=== PATIENT | female | born 1990 | race African-American/Black ===

== ENCOUNTER 2016-08-03 04:06 | Emergency (ER) | payer MEDICAID ==
[~2016-08-03] VITALS: Ht 165.1 cm; Wt 114.0 kg
[~2016-08-03 04:06] MED LIST: CLIN1CAP5 PO; DICL75 PO
[2016-08-03 04:07] VITALS: BP 137/67; PULSE 85; RESP 16; TEMP 98.1; O2SAT 98
[2016-08-03] MEDS ORDERED: PRENTAB36 PO (04:53)
--- NOTE | 2016-08-03 04:53 | PD ---
HPI Chief Complaint: GI Complaint Time Seen by Provider: 04:39 Travel History International Travel<30 days: No Contact w/Intl Traveler<30days: No Traveled to known affect area: No History of Present Illness HPI 18 weeks arrives this is a 26-year-old female. She is 3 para 2 :15 weeks . For 2 days she has felt constipated. She has been straining a little bit however is worried about her . She has tried no dietary intervention. Generalized abdominal pain consistent with constipation is reported. She takes Zofran for occasional nausea and vomiting. She's had no vaginal bleeding. She is scheduled to follow with gynecology/ obstetrics next week at [facility]. [facility] Past Medical History Medical History: Denies Significant Hx ?: Past Surgical History Surgical History: No Previous Surgery Social History Alcohol Use: No Tobacco Use: No Substance Use: No Allergies-Medications (Allergen,Severity, Reaction): Coded Allergies: No Known Allergies (Verified , 08/03/16) Reported Meds & Prescriptions Reported Meds & Active Scripts Active Review of Systems Except as stated in HPI: all other systems reviewed are Neg Physical Exam Narrative GENERAL: 26 yo F, NAD, WNWD SKIN: Warm and dry. HEAD: Atraumatic. Normocephalic. CARDIOVASCULAR: Regular rate and rhythm. No murmur appreciated. RESPIRATORY: No accessory muscle use. Clear to auscultation. Breath sounds equal bilaterally. GASTROINTESTINAL: Soft. No focus of tenderness. Data Data Last Documented VS Vital Signs Date Time Temp Pulse Resp B/P Pulse Ox O2 Delivery O2 Flow Rate FiO2 08/03/16 04:07 98.1 85 16 137/67 98 Room Air [facility] Medical Decision Making Medical Screen Exam Complete: Yes Emergency Medical Condition: Yes Medical Record Reviewed: Yes Differential Diagnosis Constipation, , nausea vomiting Narrative Course Dietary changes recommended. The patient has follow-up next week with obstetrics in [facility]. Patient agreeable with plan. Will start vitamins. Diagnosis Primary Impression: Constipation Qualified Code: K59.00 - Constipation, unspecified constipation type Additional Impression: Qualified Code: Z3A.15 - 15 weeks gestation of Referrals: Help Desk Agent Additional Instructions: You have a choice when it comes to health care, and we are glad that you chose [facility]. Hopefully, we have met your expectations on today's visit. You are welcome to return to [facility] at any time, as we are committed to meeting the health care needs of our community. Med/Other Pt SpecificInfo: Prescription(s) given Scripts Multivit-Min W/Fe-FA ( Forte)1 Tab Tab1 Tab PO da 90 Days Ref 2 Prov:Otto Berman MD 08/03/16 Disposition: 01 DISCHARGE HOME Condition: Stable Otto Berman MD Aug 03, 2016 04:53
== END 2016-08-03 05:17 | disposition home or self-care (01) ==
LOC: NEPE 04:06
DX: O26.892 Other specified pregnancy related conditions, second trimester (principal); K59.00 Constipation, unspecified; Z3A.15 15 weeks gestation of pregnancy
CPT/HCPCS: 99283

== ENCOUNTER 2016-08-04 07:57 | Emergency (ER) | payer MEDICAID ==
[~2016-08-04] VITALS: Ht 165.1 cm; Wt 115.0 kg
[~2016-08-04 07:57] MED LIST changes: +PRENTAB36 PO
[2016-08-04 07:59] VITALS: BP 130/88; PULSE 88; RESP 16; TEMP 98.2; O2SAT 97
--- NOTE | 2016-08-04 08:39 | PD ---
HPI Chief Complaint: Related Problem Time Seen by Provider: 08:26 Travel History International Travel<30 days: No Contact w/Intl Traveler<30days: No Traveled to known affect area: No History of Present Illness HPI Patient is a 26-year-old female presents emergency department for complaints of vaginal bleeding. Patient states she is 15 weeks' diagnostic for the [facility]. Patient denies any abdominal pain. Patient states that she went to wipe herself this morning and noticed that there was some blood on tissue paper. Denies any hypovolemic symptoms, review of her records show that she is Rh+ patient. States he was just blood on the toilet paper she did not have any blood clot passage. PFSH Past Medical History ?: : 3 Para: 2 Miscarriage: 1 Social History Alcohol Use: No Tobacco Use: No Substance Use: No Allergies-Medications (Allergen,Severity, Reaction): Coded Allergies: No Known Allergies (Verified , 08/04/16) Reported Meds & Prescriptions Reported Meds & Active Scripts Active Forte ( Multivit-Min W/Fe-FA) 1 Tab Tab 1 Tab PO DA 90 Days Review of Systems Except as stated in HPI: all other systems reviewed are Neg Physical Exam Narrative GENERAL: Well-developed overweight no apparent distress. SKIN: Warm and dry. HEAD: Atraumatic. Normocephalic. EYES: Pupils equal and round. No scleral icterus. No injection or drainage. ENT: No nasal bleeding or discharge. Mucous membranes pink and moist. NECK: Trachea midline. No JVD. CARDIOVASCULAR: Regular rate and rhythm. No murmur appreciated. RESPIRATORY: No accessory muscle use. Clear to auscultation. Breath sounds equal bilaterally. GASTROINTESTINAL: Abdomen soft, non-tender, nondistended. Hepatic and splenic margins not palpable. GENITOURINARY: Exam performed with female nurse present in all times, no discharge and no bleeding from cervix at this time, no bimanual tenderness, no cervical motion tenderness, been taking swabs for GC and wet prep there is scant blood tinged fluid in the cervical area however no active bleeding was noted. Cervix is closed. MUSCULOSKELETAL: No obvious deformities. No clubbing. No cyanosis. No edema. NEUROLOGICAL: Awake and alert. No obvious cranial nerve deficits. Motor grossly within normal limits. Normal speech. PSYCHIATRIC: Appropriate mood and affect; insight and judgment normal. Data Data Last Documented VS Vital Signs Date Time Temp Pulse Resp B/P Pulse Ox O2 Delivery O2 Flow Rate FiO2 08/04/16 07:59 98.2 88 16 130/88 97 Room Air Orders Ed Poc Ultrasound (08/04/16 ) Wet Prep Profile (08/04/16 08:26) Gc And Chlamydia Pcr (08/04/16 08:26) Urinalysis - C+S If Indicated (08/04/16 08:26) Labs Laboratory Tests Test 08/04/16 08/04/16 09:00 09:05 Urine Color YELLOW Urine Turbidity HAZY Urine pH 6.0 Urine Specific [place] 1.023 Urine Protein TRACE mg/dL Urine Glucose (UA) NEG mg/dL Urine Ketones NEG mg/dL Urine Occult Blood MOD Urine Nitrite NEG Urine Bilirubin NEG Urine Urobilinogen LESS THAN 2.0 MG/DL Urine Leukocyte Esterase SMALL Urine RBC 2 /hpf Urine WBC 6 /hpf Urine Squamous Epithelial 4 /hpf Cells Urine Bacteria FEW /hpf Urine Mucus MOD /lpf Microscopic Urinalysis Comment CULT NOT INDICATED Clue Cells (Wet Prep) PRESENT Vaginal Trichomonas (Wet Prep) NONE SEEN Vaginal Yeast (Wet Prep) NONE SEEN Chlamydia trachomatis DNA NOT DETECTED (PCR) Neisseria gonorrhoeae DNA NOT DETECTED (PCR) MDM Medical Decision Making Medical Screen Exam Complete: Yes Emergency Medical Condition: Yes Differential Diagnosis Vaginal bleeding , BV, CVA, STD, intrauterine demise. Narrative Course Patient roomed emergency primary, no discharge seen, STD probe sent. Patient is Rh+ by previous labs here. Bedside ultrasound was reassuring. Discussed with the patient need for follow-up with her PROJECT HIRE and she has an appointment this coming Saturday. She feels reassured after seeing the ultrasound results and requests discharge. Procedures Procedure Narrative Bedside ultrasound: Transabdominal views were obtained of the low pelvis and shows a single intrauterine approximately 16 weeks gestational age by biparietal diameter. Active movement active heart tones. No gross abnormalities. heart tones to 138 by M-mode. Diagnosis Primary Impression: Vaginal bleeding in Qualified Code: O46.91 - Vaginal bleeding in , first trimester Additional Instructions: Follow-up with your PROJECT HIRE on Saturday as scheduled, take vitamins no smoking or drinking no fish. Increased bleeding or abdominal pains should prompt you to come back to the emergency department. Disposition: 01 DISCHARGE HOME Condition: Stable ContrerasRicardo J MD Aug 04, 2016 08:39
[2016-08-04 09:34] LABS: BACTERIA, URINE FEW /hpf; BLOOD, URINE MOD (NEG); COMMENT (UR) CULT NOT INDICATED; CULTURE IF INDICATED CULT NOT INDICATED; GLUCOSE,URINE NEG (NEG); KETONE, URINE NEG (NEG); MUCUS URINE MOD /lpf (OCC); NITRITE,URINE NEG (NEG); SQUAMOUS EPITHELIAL CELL URINE 4 /hpf (0-5); URINE COLOR YELLOW (YELLW/STRAW)
[2016-08-04 13:57] LABS: CHLAMYDIA PCR NOT DETECTED (NOT DETECT); NEISSERIA PCR NOT DETECTED (NOT DETECT)
== END 2016-08-04 09:44 | disposition home or self-care (01) ==
LOC: NEPE 07:57
DX: O46.92 Antepartum hemorrhage, unspecified, second trimester (principal)
CPT/HCPCS: 81001; 87210; 87491; 87591; 99284

== ENCOUNTER 2016-08-04 12:53 | Emergency (ER) | payer MEDICAID ==
--- NOTE | 2016-08-04 13:49 | PD ---
HPI Chief Complaint Spotting Date Seen: Aug 04, 2016 Time Seen: 13:40 Travel History International Travel<30 Days: No Contact w/Intl Traveler<30Days: No Known Affected Area: No History of Present Illness HPI 26-year-old 3 para 2 living 1 at 15-6/7 weeks' gestation with an EDC January 21 by LMP consistent with point of care ultrasound in the emergency room. She states that she noticed some blood on the tissue when she wiped herself. She denies any leakage of fluid, vaginal discharge or irritation. No abdominal trauma or cramping. She has had substantial constipation problems already in this . No dysuria or hematuria or frequency Para: 2 : 3 Miscarriage: 0 : 0 History Past Medical History Narrative Medical No chronic diseases Past Surgical History Surgical History: No Previous Surgery Family History Family History: Negative Social History Alcohol Use: No Tobacco Use: No Substance Abuse: No Allergies-Medications (Allergen,Severity, Reaction): Coded Allergies: No Known Allergies (Verified , 08/04/16) Home Meds Active Scripts Multivit-Min W/-FA ( Forte)1 Tab Tab1 Tab PO da 90 Days Ref 2 Prov:Otto Berman MD 08/03/16 Discontinued Scripts Diclofenac Sod (Diclofenac Sodium Dr)75 Mg Tab75 Mg PO Q12HR PRN (PAIN SCALE 1 TO 10) #20 TAB Prov:Aleksander Headley MD 12/19/15 Clindamycin Hcl 150 Mg [id number] Mg PO Q6H 10 Days Prov:Aleksander Headley MD 12/19/15 Review of Systems Except as stated in HPI: all other systems reviewed are Neg Physical Exam Narrative GENERAL: Well-nourished, well-developed patient. SKIN: Warm and dry. HEAD: Normocephalic and atraumatic. EYES: No scleral icterus. No injection or drainage. ENT: No nasal drainage noted. Mucous membranes pink. Airway patent. NECK: Supple, trachea midline. No JVD. ABDOMEN/GI: Abdomen soft, non-tender, bowel sounds present, no rebound, no guarding Gravid to [-] weeks size Fundal Height: [-] GENITOURINARY: External Genitalia: intact and normal in appearance BUS glands: [Negative-] Cervix: [-] Dilatation: [Closed-] Effacement: [-Long] Station: [-] Presentation: [-] Membranes: [intact or ruptured] Uterine Contractions: [-] FHT's: Category: [-] Baseline: [140-] Reactive: [-] Variability: [-] Decels: [-] EXTREMITIES: No cyanosis or edema. BACK: Nontender without obvious deformity. No CVA tenderness. NEUROLOGICAL: Awake and alert. Motor and sensory grossly within normal limits. Five out of 5 muscle strength in all muscle groups. Normal speech. Data Data Vital Signs Reviewed: Yes MDM Medical Record Reviewed: Yes Narrative Course / MDM Assessment: 15+ week intrauterine with spotting. Acute on top of chronic constipation Plan: The patient is Rh+. Urinalysis from the emergency room did not meet criteria for culture. GC and Chlamydia are pending. Precautions were reviewed with the patient regarding need for emergent follow- up. She has an appointment on Saturday for initiating her care and the importance of this was emphasized. Diagnosis Diagnosis: Primary Impression: Vaginal bleeding in Qualified Code: O46.92 - Vaginal bleeding in , second trimester Additional Impression: Constipation Disposition: 01 DISCHARGE HOME Avila Paz MD Aug 04, 2016 13:49
== END 2016-08-04 13:57 | disposition home or self-care (01) ==
LOC: HOBED 12:53
DX: O46.92 Antepartum hemorrhage, unspecified, second trimester (principal); K59.00 Constipation, unspecified
CPT/HCPCS: 99283

== ENCOUNTER 2017-02-28 15:28 | Emergency (ER) | payer MEDICAID ==
[~2017-02-28] VITALS: Ht 165.1 cm; Wt 112.0 kg
[~2017-02-28 15:28] MED LIST changes: -CLIN1CAP5 PO; -DICL75 PO
[2017-02-28 15:30] VITALS: BP 168/89; PULSE 116; RESP 16; TEMP 101.1; O2SAT 100
--- NOTE | 2017-02-28 15:53 | PD ---
Physical Exam Date Seen by Provider: Feb 28, 2017 Time Seen by Provider: 15:51 Narrative 26-year-old female who is 7 weeks presents the emergency department with urinary tract infection symptoms including hematuria, burning, and frequency. Patient has noted fever around 101.7. She is tachycardic. Patient states she is passing urine with blood in it. Patient has had low back pain since yesterday. Pain was 10 over 10. Protocols were ordered including blood cultures and lactic acid. Vital signs show fever and tachycardia. Patient is awaiting medical bed placement. Data Data Last Documented VS Vital Signs Date Time Temp Pulse Resp B/P (MAP) Pulse Ox O2 Delivery O2 Flow Rate FiO2 02/28/17 15:30 101.1 116 16 168/89 (115) 100 Room Air Orders Orders Urinalysis - C+S If Indicated (02/28/17 15:46) Beta Hcg (Quant/Titer) (02/28/17 15:49) Complete Blood Count With Diff (02/28/17 15:49) Comprehensive Metabolic Panel (02/28/17 15:49) Lactic Acid (02/28/17 15:49) Prothrombin Time / Inr (Pt) (02/28/17 15:49) Act Partial Throm Time (Ptt) (02/28/17 15:49) Blood Culture (02/28/17 15:49) MDM Medical Record Reviewed: Yes Supervised Visit with CRISTAL: Yes Condition: Stable Oleg Fontenot Feb 28, 2017 15:53
[2017-02-28 16:36] LABS: AUTOMATED NEUTROPHIL # 6.1 TH/MM3 (1.8-7.7); BASOPHIL % 0.3 % (0.0-2.0); EOSINOPHIL % 0.1 % (0.0-4.0); HEMATOCRIT 36.8 % (35.0-46.0); HEMO FLAGS DIFF FINAL; LYMPH % 7.5 % (9.0-44.0); LYMPHOCYTE # 0.5 TH/MM3 (1.0-4.8); MEAN CELL VOLUME 86.8 FL (80.0-100.0); MEAN CORPUSCULAR HGB CONC 32.2 % (32.0-36.0); MONO % 6.2 % (0.0-8.0); NEUT % 85.9 % (16.0-70.0); PLATELET COUNT 251 TH/MM3 (150-450); RED BLOOD COUNT 4.24 MIL/MM3 (4.00-5.30); RED CELL DISTRIBUTION WIDTH 15.7 % (11.6-17.2)
[2017-02-28 16:48] LABS: APTT (PATIENT) 31.7 SEC (24.3-30.1); PROTHROMBIN TIME - PATIENT 11.4 SEC (9.8-11.6)
[2017-02-28 16:57] LABS: ALT (GPT) 50 U/L (10-53); ANION GAP 8 MEQ/L (5-15); AST (GOT) 34 U/L (15-37); BICARBONATE 25.9 MEQ/L (21.0-32.0); BLOOD UREA NITROGEN 8 MG/DL (7-18); CHLORIDE 98 MEQ/L (98-107); GLOMERULAR FILTRATION RATE 71 ML/MIN (>89); POTASSIUM 3.4 MEQ/L (3.5-5.1); SODIUM (NA) 132 MEQ/L (136-145)
[2017-02-28] MEDS ORDERED: ACETAMINOPHEN 325 MG TAB PO ONE (17:00)
[2017-02-28 17:02] LABS: ALKALINE PHOSPHATASE 79 U/L (45-117); BETA HCG QUANT LESS THAN 1 MIU/ML (0-5); TOTAL BILIRUBIN ADULT 1.3 MG/DL (0.2-1.0)
[2017-02-28 17:09] LABS: BACTERIA, URINE MOD /hpf; BLOOD, URINE MOD (NEG); COMMENT (UR) CULTURE INDICATED; CULTURE IF INDICATED CULTURE INDICATED; GLUCOSE,URINE NEG (NEG); KETONE, URINE NEG (NEG); MUCUS URINE FEW /lpf (OCC); NITRITE,URINE NEG (NEG); PH, URINE 5.5 (5.0-8.5); SQUAMOUS EPITHELIAL CELL URINE 1 /hpf (0-5); URINE COLOR YELLOW (YELLW/STRAW)
[2017-02-28] MEDS ORDERED: MORPHINE SULFATE 4 MG/ML INJ IV PUSH ONE (17:15)
[2017-02-28] MEDS ORDERED: ONDANSETRON HCL 4 MG/2 ML VIAL IV PUSH ONE (17:15)
[2017-02-28] MEDS ORDERED: cefTRIAXone INJ 1,000 MG in SODIUM CHLORIDE 0.9% INJ 100 ML IV ONE (17:15)
--- NOTE | 2017-02-28 18:08 | PD ---
HPI Chief Complaint: Complaint Time Seen by Provider: 16:53 Travel History International Travel<30 days: No Contact w/Intl Traveler<30days: No Traveled to known affect area: No History of Present Illness HPI 26-year-old female that presents to the ED for evaluation of fever, urinary symptoms and hematuria. Per patient she's had this since yesterday. Only medical history is recent childbirth vaginal 7 weeks ago. Per patient she has had no issues. Per patient she initially thought she was having her menses but she noted that the urine was what was bleeding. She states that it hurts to urinate. She denies any vaginal discharge or bleeding. States that the pain is mainly on the pelvic area as well as in the right flank. No history of kidney stones. She states having had UTIs in the past and this feels similar the bleeding is new. She has no allergies to medication. No chest pain or shortness of breath. Per patient the pain is 8 out of 10. She thought that she had chills but she do not know she had a fever which was found out to be here. She denies any chest pain or shortness of breath. No nausea or vomiting. She does not breast-feed at this time. Takes no medications. PFSH Past Medical History ?: Not LMP: 02/08/2017 : 3 Para: 2 Miscarriage: 1 Social History Alcohol Use: No Tobacco Use: No Substance Use: No Allergies-Medications (Allergen,Severity, Reaction): Coded Allergies: No Known Allergies (Verified , 02/28/17) Reported Meds & Prescriptions Reported Meds & Active Scripts Active Zofran (Ondansetron HCl) 4 Mg Tab 4 Mg PO Q6HR PRN Macrobid (Nitrofurantoin Monohydrate Macrocrystals) 100 Mg Capsule 100 Mg PO BID 10 Days Review of Systems Except as stated in HPI: all other systems reviewed are Neg Physical Exam Narrative GENERAL: SKIN: Warm and dry. HEAD: Atraumatic. Normocephalic. EYES: Pupils equal and round. No scleral icterus. No injection or drainage. ENT: No nasal bleeding or discharge. Mucous membranes pink and moist. Tongue is midline. No uvula deviation. NECK: Trachea midline. No JVD. CARDIOVASCULAR: Regular rate and rhythm. No murmurs, S3, S4. RESPIRATORY: No accessory muscle use. Clear to auscultation. Breath sounds equal bilaterally. GASTROINTESTINAL: Abdomen soft, non-tender, nondistended. Hepatic and splenic margins not palpable. Patient has reproducible pain on the right flank. MUSCULOSKELETAL: Extremities without clubbing, cyanosis, or edema. No obvious deformities. Full range of motion of the upper and lower extremities bilaterally. 2+ pulses bilaterally. NEUROLOGICAL: Awake and alert. No obvious cranial nerve deficits. Motor grossly within normal limits. Five out of 5 muscle strength in the arms and legs. Normal speech. PSYCHIATRIC: Appropriate mood and affect; insight and judgment normal. Data Data Last Documented VS Vital Signs Date Time Temp Pulse Resp B/P (MAP) Pulse Ox O2 Delivery O2 Flow Rate FiO2 02/28/17 17:38 18 02/28/17 15:30 101.1 116 168/89 (115) 100 Room Air Orders Orders Urinalysis - C+S If Indicated (02/28/17 15:46) Beta Hcg (Quant/Titer) (02/28/17 15:49) Complete Blood Count With Diff (02/28/17 15:49) Comprehensive Metabolic Panel (02/28/17 15:49) Lactic Acid (02/28/17 15:49) Prothrombin Time / Inr (Pt) (02/28/17 15:49) Act Partial Throm Time (Ptt) (02/28/17 15:49) Blood Culture (02/28/17 16:05) Acetaminophen (Tylenol) (02/28/17 17:00) Ct Abd/Pel W/O Iv Contrast (02/28/17 17:08) Ceftriaxone Inj (Rocephin Inj) (02/28/17 17:15) Urine Culture (02/28/17 15:34) Morphine Inj (Morphine Inj) (02/28/17 17:15) Ondansetron Inj (Zofran Inj) (02/28/17 17:15) Sodium Chlor 0.9% 1000 Ml Inj (Ns 1000 M (02/28/17 18:28) Labs Laboratory Tests Test 02/28/17 15:34 02/28/17 16:02 Urine Color YELLOW Urine Turbidity HAZY Urine pH 5.5 Urine Specific [place] 1.020 Urine Protein 30 mg/dL Urine Glucose (UA) NEG mg/dL Urine Ketones NEG mg/dL Urine Occult Blood MOD Urine Nitrite NEG Urine Bilirubin NEG Urine Urobilinogen LESS THAN 2.0 MG/DL Urine Leukocyte Esterase LARGE Urine RBC 49 /hpf Urine WBC /hpf Urine WBC Clumps OCC Urine Squamous Epithelial Cells 1 /hpf Urine Bacteria MOD /hpf Urine Mucus FEW /lpf Microscopic Urinalysis Comment CULTURE INDICATED White Blood Count 7.0 TH/MM3 Red Blood Count 4.24 MIL/MM3 Hemoglobin 11.9 GM/DL Hematocrit 36.8 % Mean Corpuscular Volume 86.8 FL Mean Corpuscular Hemoglobin 28.0 PG Mean Corpuscular Hemoglobin Concent 32.2 % Red Cell Distribution Width 15.7 % Platelet Count 251 TH/MM3 Mean Platelet Volume 9.3 FL Neutrophils (%) (Auto) 85.9 % Lymphocytes (%) (Auto) 7.5 % Monocytes (%) (Auto) 6.2 % Eosinophils (%) (Auto) 0.1 % Basophils (%) (Auto) 0.3 % Neutrophils # (Auto) 6.1 TH/MM3 Lymphocytes # (Auto) 0.5 TH/MM3 Monocytes # (Auto) 0.4 TH/MM3 Eosinophils # (Auto) 0.0 TH/MM3 Basophils # (Auto) 0.0 TH/MM3 CBC Comment DIFF FINAL Differential Comment Prothrombin Time 11.4 SEC Prothromb Time International Ratio 1.0 RATIO Activated Partial Thromboplast Time 31.7 SEC Blood Urea Nitrogen 8 MG/DL Creatinine 1.12 MG/DL Random Glucose 125 MG/DL Total Protein 8.4 GM/DL Albumin 3.8 GM/DL Calcium Level 8.9 MG/DL Alkaline Phosphatase 79 U/L Aspartate Amino Transf (AST/SGOT) 34 U/L Alanine Aminotransferase (ALT/SGPT) 50 U/L Total Bilirubin 1.3 MG/DL Sodium Level 132 MEQ/L Potassium Level 3.4 MEQ/L Chloride Level 98 MEQ/L Carbon Dioxide Level 25.9 MEQ/L Anion Gap 8 MEQ/L Estimat Glomerular Filtration Rate 71 ML/MIN Lactic Acid Level 1.7 mmol/L Human Chorionic Gonadotropin, Quant LESS THAN 1 MIU/ML MDM Medical Decision Making Medical Screen Exam Complete: Yes Emergency Medical Condition: Yes Medical Record Reviewed: Yes Interpretation(s) CBC & BMP Diagram 02/28/17 16:02 Total Protein 8.4 H, Albumin 3.8, Calcium Level 8.9, Alkaline Phosphatase 79, Aspartate Amino Transf (AST/SGOT) 34, Alanine Aminotransferase (ALT/SGPT) 50, Total Bilirubin 1.3 H UA shows hematuria with signs of infection beta negative Last Impressions Abdomen/Pelvis CT 02/28/17 1708 Signed Impressions: Service Date/Time: February 17:58 - CONCLUSION: 1. Borderline/mild bilateral hydronephrosis of unclear etiology. No stones are demonstrated. Congenital UPJ obstruction would be in the differential. 2. Apparent mild wall thickening of the bladder. Please correlate clinically for the possibility of cystitis. 3. Prominent size uterus, nonspecific but could be related to fibroids. Exact relevance to the hydronephrosis uncertain but doubted. Darrell Redding MD Differential Diagnosis UTI versus polynephritis versus kidney stone Narrative Course 26-year-old female that presents to the ED for evaluation of urinary symptoms with temperature ear. Patient was properly examined and was found to have signs and symptoms concerning for significant infection. Patient is tachycardic and has a fever here. She was not taken anything for this. She denies any vaginal discharge or symptoms from the vagina. Labs and imaging were ordered. Labs and imaging show UTI. She was given rocephin, pain meds and antiemetics. Labs and imaging positive for UTI. My attending Dr Herrera evaluated the patient and recommends macrobid and zofran. Close follow up with PCP. See ED if worst or cannot keep anything down. Diagnosis Primary Impression: Cystitis Patient Instructions: General Instructions, Narcotic given in the ED Additional Instructions: Take medications as prescribed. Follow with PCP. See ED if any worsening symptoms. Especially if you cannot keep anything down. Motrin or tylenol for pain. Drink plenty of fluids. Med/Other Pt SpecificInfo: Prescription(s) given Scripts Ondansetron (Zofran) 4 Mg Tab 4 MG PO Q6HR Y for NAUSEA OR VOMITING, #15 TAB 0 Refills Prov: Kayleen Herrera MD 02/28/17 Nitrofurantoin Monohydrate Macrocrystals (Macrobid) 100 Mg Capsule 100 MG PO BID for Infection for 10 Days, #20 CAP 0 Refills Prov: Kayleen Herrera MD 02/28/17 Disposition: 01 DISCHARGE HOME Condition: Stable Dandre Conroy Feb 28, 2017 18:08
--- NOTE | 2017-02-28 18:20 | RADRPT ---
EXAM DATE/TIME: 02/28/2017 17:58 [facility] COMPARISON: No previous studies available for comparison. INDICATIONS : Lower back pain, blood in urine. ORAL CONTRAST: No oral contrast ingested. RADIATION DOSE: 16.99 CTDIvol (mGy) MEDICAL HISTORY : None SURGICAL HISTORY : None. ENCOUNTER: Initial ACUITY: 1 day PAIN SCALE: 5/10 LOCATION: Bilateral flank TECHNIQUE: Volumetric scanning of the abdomen and pelvis was performed. Using automated exposure control and ad justment of the mA and/or kV according to patient size, radiation dose was kept as low as reasonably achievable to obtain optimal diagnostic quality images. DICOM format image data is available electro nically for review and comparison. FINDINGS: Mildly prominent bilateral extrarenal pelves. There also appears to be some prominent calyces, especi ally left upper pole. No hydroureter. No stones are demonstrated. Bladder wall appears slightly thick ened. Prominent size uterus, nonspecific. Adnexal regions are within normal limits. Noncontrast appearance of the liver, spleen, pancreas and adrenal glands and gastrointestinal tract w ithin normal limits. No free or loculated fluid. No lymphadenopathy. Visualized lung bases are clear. No acute bony abnormality demonstrated. CONCLUSION: 1. Borderline/mild bilateral hydronephrosis of unclear etiology. No stones are demonstrated. Congenit al UPJ obstruction would be in the differential. 2. Apparent mild wall thickening of the bladder. Please correlate clinically for the possibility of c ystitis. 3. Prominent size uterus, nonspecific but could be related to fibroids. Exact relevance to the hydron ephrosis uncertain but doubted. Darrell Redding MD on February 28, 2017 at 18:12 Board Certified Radiologist. This report was verified electronically.
[2017-02-28] MEDS ORDERED: SODIUM CHLOR 0.9% 1000 ML INJ 1,000 ML IV SCH (18:28)
[2017-02-28] MEDS ORDERED: MACR100C2 PO (18:37)
--- NOTE | 2017-02-28 18:48 | PD ---
Physical Exam Date Seen by Provider: Feb 28, 2017 Time Seen by Provider: 18:46 Narrative 26-year-old female came to the emergency room with history of lower abdominal pain and hematuria. She had a temperature 101 in triage. Patient is seen by the PA and I'm supervising him. Blood test and CAT scan was done. UA strongly suggestive of UTI. Patient received IV fluid bolus along with IV Rocephin. I went and reassessed the patient. She was sitting on the stretcher comfortably talking on the cell phone. She says the pain is little better. She is comfortable going home on oral medication. She received strict instructions of returning if she is vomiting and unable to keep the antibiotic down. Patient understands. Data Data Last Documented VS Vital Signs Date Time Temp Pulse Resp B/P (MAP) Pulse Ox O2 Delivery O2 Flow Rate FiO2 02/28/17 19:01 02/28/17 18:54 98.6 90 16 100 Room Air Orders Orders Urinalysis - C+S If Indicated (02/28/17 15:46) Beta Hcg (Quant/Titer) (02/28/17 15:49) Complete Blood Count With Diff (02/28/17 15:49) Comprehensive Metabolic Panel (02/28/17 15:49) Lactic Acid (02/28/17 15:49) Prothrombin Time / Inr (Pt) (02/28/17 15:49) Act Partial Throm Time (Ptt) (02/28/17 15:49) Blood Culture (02/28/17 16:05) Acetaminophen (Tylenol) (02/28/17 17:00) Ct Abd/Pel W/O Iv Contrast (02/28/17 17:08) Ceftriaxone Inj (Rocephin Inj) (02/28/17 17:15) Urine Culture (02/28/17 15:34) Morphine Inj (Morphine Inj) (02/28/17 17:15) Ondansetron Inj (Zofran Inj) (02/28/17 17:15) Sodium Chlor 0.9% 1000 Ml Inj (Ns 1000 M (02/28/17 18:28) Labs Laboratory Tests Test 02/28/17 15:34 02/28/17 16:02 Urine Color YELLOW Urine Turbidity HAZY Urine pH 5.5 Urine Specific [place] 1.020 Urine Protein 30 mg/dL Urine Glucose (UA) NEG mg/dL Urine Ketones NEG mg/dL Urine Occult Blood MOD Urine Nitrite NEG Urine Bilirubin NEG Urine Urobilinogen LESS THAN 2.0 MG/DL Urine Leukocyte Esterase LARGE Urine RBC 49 /hpf Urine WBC /hpf Urine WBC Clumps OCC Urine Squamous Epithelial Cells 1 /hpf Urine Bacteria MOD /hpf Urine Mucus FEW /lpf Microscopic Urinalysis Comment CULTURE INDICATED White Blood Count 7.0 TH/MM3 Red Blood Count 4.24 MIL/MM3 Hemoglobin 11.9 GM/DL Hematocrit 36.8 % Mean Corpuscular Volume 86.8 FL Mean Corpuscular Hemoglobin 28.0 PG Mean Corpuscular Hemoglobin Concent 32.2 % Red Cell Distribution Width 15.7 % Platelet Count 251 TH/MM3 Mean Platelet Volume 9.3 FL Neutrophils (%) (Auto) 85.9 % Lymphocytes (%) (Auto) 7.5 % Monocytes (%) (Auto) 6.2 % Eosinophils (%) (Auto) 0.1 % Basophils (%) (Auto) 0.3 % Neutrophils # (Auto) 6.1 TH/MM3 Lymphocytes # (Auto) 0.5 TH/MM3 Monocytes # (Auto) 0.4 TH/MM3 Eosinophils # (Auto) 0.0 TH/MM3 Basophils # (Auto) 0.0 TH/MM3 CBC Comment DIFF FINAL Differential Comment Prothrombin Time 11.4 SEC Prothromb Time International Ratio 1.0 RATIO Activated Partial Thromboplast Time 31.7 SEC Blood Urea Nitrogen 8 MG/DL Creatinine 1.12 MG/DL Random Glucose 125 MG/DL Total Protein 8.4 GM/DL Albumin 3.8 GM/DL Calcium Level 8.9 MG/DL Alkaline Phosphatase 79 U/L Aspartate Amino Transf (AST/SGOT) 34 U/L Alanine Aminotransferase (ALT/SGPT) 50 U/L Total Bilirubin 1.3 MG/DL Sodium Level 132 MEQ/L Potassium Level 3.4 MEQ/L Chloride Level 98 MEQ/L Carbon Dioxide Level 25.9 MEQ/L Anion Gap 8 MEQ/L Estimat Glomerular Filtration Rate 71 ML/MIN Lactic Acid Level 1.7 mmol/L Human Chorionic Gonadotropin, Quant LESS THAN 1 MIU/ML MDM Supervised Visit with CRIST[facility]: Yes Scripts Ondansetron (Zofran) 4 Mg Tab 4 MG PO Q6HR Y for NAUSEA OR VOMITING, #15 TAB 0 Refills Prov: Kayleen Herrera MD 02/28/17 Nitrofurantoin Monohydrate Macrocrystals (Macrobid) 100 Mg Capsule 100 MG PO BID for Infection for 10 Days, #20 CAP 0 Refills Prov: Kayleen Herrera MD 02/28/17 Condition: Stable Kayleen Herrera MD Feb 28, 2017 18:48
[2017-02-28] MEDS ORDERED: ZOFR4TAB PO (18:49)
[2017-02-28 18:54] VITALS: BP 116/59; PULSE 90; RESP 16; TEMP 98.6; O2SAT 100
== END 2017-02-28 19:02 | disposition home or self-care (01) ==
LOC: NEPE 15:28
DX: O86.22 Infection of bladder following delivery (principal); B96.20 Unspecified Escherichia coli [E. coli] as the cause of diseases classified elsewhere; N30.00 Acute cystitis without hematuria
CPT/HCPCS: 74176; 80053; 81001; 83605; 84702; 85025; 85610; 85730; 87040; 87077; 87086; 87186; 96365; 96375; 99285; J0696; J2270; J2405; J7030

== ENCOUNTER 2017-03-31 06:26 | Emergency (ER) | payer MEDICAID ==
[~2017-03-31] VITALS: Ht 165.1 cm; Wt 115.0 kg
[~2017-03-31 06:26] MED LIST changes: +MACR100C2 PO; -PRENTAB36 PO; +ZOFR4TAB PO
[2017-03-31 06:28] VITALS: BP 187/124; PULSE 82; RESP 16; TEMP 98.9; O2SAT 96
[2017-03-31] MEDS ORDERED: IBUPROFEN 800 MG TAB PO ONE (06:45)
[2017-03-31] MEDS ORDERED: PENICILLIN V POTASSIUM 500 MG TAB PO ONE (06:45)
[2017-03-31] MEDS ORDERED: IBUP800T23 PO (07:01)
[2017-03-31] MEDS ORDERED: PENI500T PO (07:01)
--- NOTE | 2017-03-31 07:06 | PD ---
HPI Chief Complaint: Oral / Dental Pain or Problem Time Seen by Provider: 06:44 Travel History International Travel<30 days: No Contact w/Intl Traveler<30days: No Traveled to known affect area: No History of Present Illness HPI 26-year-old female with Saturday of dental pain. Patient states that she awakened from sleep just prior to arrival to the emergency department and noticed swelling to the left side of her face. Patient denies any fever or chills. Patient is not diabetic. Patient denies any injury. Patient took no medications prior to arrival to the emergency department. Lacerated was 2 weeks ago and normal for her and denies . Patient is 2 months status . Patient rates her pain as moderate to severe. Patient was noted in triage to have an elevated blood pressure. Patient states she had no issues with her blood pressure during . Patient denies history of hypertension. PFSH Past Medical History Narrative Medical Ab1; no tobacco use; nursing notes reviewed Medical History: Denies Significant Hx ?: Not LMP: 03/10/17 : 3 Para: 2 Miscarriage: 1 Past Surgical History Surgical History: No Previous Surgery Social History Alcohol Use: No Tobacco Use: No Substance Use: No Allergies-Medications (Allergen,Severity, Reaction): Coded Allergies: No Known Allergies (Verified , 03/31/17) Reported Meds & Prescriptions Reported Meds & Active Scripts Active Ibuprofen 800 Mg Tab 800 Mg PO Q8H PRN Penicillin V Potassium 500 Mg Tab 500 Mg PO Q6H Review of Systems Except as stated in HPI: all other systems reviewed are Neg General / Constitutional: No: Fever, Chills HENT: Positive: Dental Difficulties, No: Congestion Cardiovascular: No: Chest Pain or Discomfort Respiratory: No: Shortness of Breath Gastrointestinal: No: Abdominal Pain Genitourinary: No: Flank Pain Skin: No Rash Neurologic: No: Weakness, Headache Psychiatric: No: Anxiety Hematologic/Lymphatic: No: Lymph Node Enlargement Physical Exam Narrative GENERAL: Well-developed well-nourished female in no acute distress no respiratory distress SKIN: Warm and dry. HEAD: Normocephalic. EYES: No scleral icterus. No injection or drainage. ENT: Mucous membranes moist airway is patent #17 tooth appears partially impacted with evidence of gingival edema without fluctuance and no dental caries noted no cusp fracture NECK: Supple, trachea midline. No JVD or lymphadenopathy. CARDIOVASCULAR: Regular rate and rhythm without murmurs, gallops, or rubs. RESPIRATORY: Breath sounds equal bilaterally. No accessory muscle use. GASTROINTESTINAL: Abdomen soft, non-tender, nondistended. MUSCULOSKELETAL: No cyanosis, or edema. BACK: Nontender without obvious deformity. No CVA tenderness. Data Data Last Documented VS Vital Signs Date Time Temp Pulse Resp B/P (MAP) Pulse Ox O2 Delivery O2 Flow Rate FiO2 03/31/17 08:14 03/31/17 06:28 98.9 82 16 96 Room Air Orders Orders Penicillin V Potassium (Veetids) (03/31/17 06:45) Ibuprofen (Motrin) (03/31/17 06:45) Ed Discharge Order (03/31/17 06:59) [facility] Medical Decision Making Medical Screen Exam Complete: Yes Emergency Medical Condition: Yes Medical Record Reviewed: Yes Differential Diagnosis Dentalgia dental abscess apical abscess Narrative Course Patient given first dose of oral antibiotic and a one-time dose of ibuprofen; repeat blood pressure 144/60 Patient reports some symptomatic improvement is where she needs close follow-up with dentist and is stable for outpatient management Diagnosis Primary Impression: Dentalgia Referrals: Dentist call for appointment Additional Instructions: Follow-up with dentist Complete course of antibiotic as prescribed Take ibuprofen as prescribed May use [id number] Orajel for symptom relief Increase fluid hydration Monitor temperature every 4 hours with thermometer and take as needed acetaminophen/Tylenol for fever 100.4F or greater Med/Other Pt SpecificInfo: Prescription(s) given Scripts Ibuprofen (Ibuprofen) 800 Mg Tab 800 MG PO Q8H Y for pain, #12 TAB 0 Refills Prov: Jayleen Callejas MD 03/31/17 Penicillin V Potassium (Penicillin V Potassium) 500 Mg Tab 500 MG PO Q6H for Infection, #28 TAB 0 Refills Prov: Jayleen Callejas MD 03/31/17 Disposition: 01 DISCHARGE HOME Condition: Stable Jayleen Callejas MD Mar 31, 2017 07:06
[2017-03-31 07:08] VITALS: BP 144/60
== END 2017-03-31 08:15 | disposition home or self-care (01) ==
LOC: NEPC 06:26
DX: K08.9 Disorder of teeth and supporting structures, unspecified (principal)
CPT/HCPCS: 99283